=== PATIENT | male | born 1965 | race Caucasian/White ===

== ENCOUNTER 2017-12-18 17:07 | Emergency (ER) | payer OTHER ==
[2017-12-18 17:14] VITALS: BP 151/98; PULSE 84; RESP 16; TEMP 97
[2017-12-18] MEDS ORDERED: DIPH,PERTUS(ACELL)TETVAC-LF 0.5 ML VIAL IM ONE (17:24)
[2017-12-18] MEDS ORDERED: IBUPROFEN 600 MG TAB PO STA (17:30)
--- NOTE | 2017-12-18 17:45 | ED ---
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 Does not had a tetanus shot in the past 5 years. He states he is freely able to move the left thumb and has full sensation in the intact areas. Patient appears generally comfortable. - Related Data Home Medications Medication Instructions Recorded Confirmed Aspirin 325 mg PO DAILY 12/18/17 12/18/17 Previous Rx's Medication Instructions Recorded Cephalexin [Keflex] 500 mg PO Q12HR #20 cap 12/18/17 Allergies Allergy/AdvReac Type Severity Reaction Status Date / Time No Known Allergies Allergy Verified 12/18/17 17:44 Review of Systems ROS Statement: Those systems with pertinent positive or pertinent negative responses have been documented in the HPI. ROS Other: All systems not noted in ROS Statement are negative. Past Medical History Past Medical History: No Reported History History of Any Multi-Drug Resistant Organisms: None Reported Past Surgical History: No Surgical Hx Reported Past Psychological History: No Psychological Hx Reported Smoking Status: Current every day smoker Past Alcohol Use History: None Reported Past Drug Use History: None Reported General Exam Limitations: no limitations General appearance: alert, in no apparent distress Head exam: Present: atraumatic, normocephalic, normal inspection Eye exam: Present: normal appearance ENT exam: Present: normal exam Respiratory exam: Present: normal lung sounds bilaterally. Absent: respiratory distress, wheezes, rales, rhonchi, stridor Cardiovascular Exam: Present: regular rate, normal rhythm, normal heart sounds. Absent: systolic murmur, diastolic murmur, rubs, gallop, clicks Extremities exam: Present: full ROM, tenderness, other (part of the distal phalanx of the left thumb removed by steel wool machine operator) Course Vital Signs 12/18/17 17:09 Temperature 97 F L Pulse Rate 84 Respiratory 16 Rate Blood Pressure 151/98 O2 Sat by Pulse 99 Oximetry Procedures - Procedures Initial comment: a digital block was performed on the left thumb using 4 cc of 1% lidocaine for relief. 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 ROM completely intact in the left thumb and sensation is intact in the rest of the thumb. Patient is left hand dominant. X-ray was ordered to image the area and no bone damage was found. However patient will be referred to ortho because of the close proximity of the bone to the injury. Tetanus was also given. Patient was given ibuprofen for pain and a digital block was done. Antibiotics will be given prophylactically and thumb was irrigated with sterile water and wrapped using gelfoam and tube gauze. Disposition Clinical Impression: Injury of thumb, left Disposition: HOME SELF-CARE Condition: Good Instructions: Finger Amputation (ED) Additional Instructions: Follow-up with orthopedics. Take ibuprofen for pain as needed. Return to emergency department if symptoms worsen or do not improve. Prescriptions: Cephalexin [Keflex] 500 mg PO Q12HR #20 cap Referrals: None,Stated [Primary Care Provider] - 1-2 days Lily Hinds DO [Doctor of Osteopathic Medicine] - 1-2 days
[2017-12-18] MEDS ORDERED: GELATIN SPONGE,ABSORB (SMALL) 1 EACH SPONGE TOPICAL STA (17:50)
--- NOTE | 2017-12-18 17:58 | XR ---
EXAMINATION TYPE: XR finger LT DATE OF EXAM: 12/18/2017 COMPARISON: NONE HISTORY: Pain and injury TECHNIQUE: 3 views FINDINGS: There is soft tissue amputation deformity at the tip of the left thumb. I see no fracture n or dislocation. There is no evidence of a foreign body. IMPRESSION: Soft tissue amputation deformity.
== END 2017-12-18 19:04 | disposition home or self-care (01) ==
LOC: EC 17:07
DX: S69.92XA Unspecified injury of left wrist, hand and finger(s), initial encounter (principal); F17.200 Nicotine dependence, unspecified, uncomplicated; Z23 Encounter for immunization; Z79.82 Long term (current) use of aspirin; W31.89XA Contact with other specified machinery, initial encounter; Y99.0 Civilian activity done for income or pay
CPT/HCPCS: 64450; 90471; 90715; 99283

== ENCOUNTER → 2023-04-29 | Outpatient (CLI) | payer OTHER ==
--- NOTE | 2023-04-29 12:31 | XR ---
EXAMINATION TYPE: XR forearm 2 views LT, XR shoulder complete 3 views LT, XR elbow complete 3 views L T DATE OF EXAM: 04/29/2023 COMPARISON: NONE HISTORY: 57-year-old male with pain after fall, S43.402A left shoulder sprain S53.402A left elbow FINDINGS: Elbow: Small anterior elbow joint effusion. There is a transverse fracture through the proximal radius just beyond the neck of the radius with a ulnar-sided displacement up to 3 mm. Forearm: No additional acute fracture of the more mid to distal radius or ulna. Left shoulder: Moderate degenerative joint space narrowing at the AC joint. Subacromial space is preserved. No tendi nous or bursal calcifications. No acute fracture, subluxation, dislocation. IMPRESSION: 1. Elbow and forearm: Transverse fracture proximal radius just beyond the radial neck. Displacement o f 3 mm. 2. 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 No acute osseous abnormality seen.
== END | disposition home or self-care (01) ==
LOC: RADXRMAIN 11:32
PROVIDERS: ATTEND Emergency Medicine
DX: S52.322A Displaced transverse fracture of shaft of left radius, initial encounter for closed fracture (principal); S43.402A Unspecified sprain of left shoulder joint, initial encounter; S53.402A Unspecified sprain of left elbow, initial encounter; M19.012 Primary osteoarthritis, left shoulder